=== PATIENT | female | born 1970 | race Caucasian/White ===

== ENCOUNTER 2021-08-24 12:04 | Emergency (ER) | payer BC | END 2021-08-24 17:00 | disposition home or self-care (01) | LOC: JP.ED 12:04 | DX: M79.605 Pain in left leg (principal); R60.0 Localized edema; Z88.5 Allergy status to narcotic agent; Z88.0 Allergy status to penicillin | CPT/HCPCS: 36415; 85025; 85379; 86140; 93971-26-LT; 93971-LT; 99282; 99284-25 ==